=== PATIENT | female | born 1950 | race Caucasian/White ===

== ENCOUNTER → 2016-10-09 | Outpatient (CLI) | payer MEDICAID ==
[~2016-10-09] MED LIST: GADOBUTROL 10 ML VIAL IVP ONE
== END ==
LOC: FIMAGING 08:02
PROVIDERS: ATTEND Internal Medicine Hematology & Oncology
DX: R51 Headache (principal); R63.4 Abnormal weight loss; G31.9 Degenerative disease of nervous system, unspecified
CPT/HCPCS: A9585

== ENCOUNTER → 2016-12-10 | Outpatient (CLI) | payer MEDICAID | LOC: FIMAGING 14:08 | PROVIDERS: ATTEND Nurse Practitioner Women's Health | DX: Z30.431 Encounter for routine checking of intrauterine contraceptive device (principal) ==

== ENCOUNTER 2017-02-16 06:49 | Observation (INO) | payer MEDICAID ==
--- NOTE | 2017-02-15 18:24 | GHP ---
[f rep st] PREOP HISTORY AND PHYSICAL DATE OF ADMISSION: 02/16/2017 DATE OF PLANNED PROCEDURE: 02/16/2017 PLANNED PROCEDURE: Total laparoscopic hysterectomy with bilateral salpingo-oophorectomy. General S urgeon will enter the patient's abdominal cavity due to history of previous extensive abdominal surg adriano. HISTORY OF PRESENT ILLNESS: The patient is a 66-year-old 1, para 1-0-0-2 who was diagnosed with breast cancer in 2010. She has tried Femara and could not tolerate the side effects, so she reeves s been using tamoxifen for the last 5 years. The patient underwent an abdominal CT scan for pelvic pain and there was an incidental finding of a left adnexal mass. On the followup ultrasound the lef t ovarian cyst measured 2.4 x 3.2 x 2.5 cm. The endometrium was noted to be 13 mm. A Jane IUD was placed by a provider not in our practice to control possible endometrial hyperplasia. Repeat ultra sound was performed in 03/2016 after the IUD strings were not able to be visualized on exam. The le ft ovarian cyst persisted. The endometrial stripe appeared to be 5 mm and they were not able to vis ualize the IUD. The patient presented to our office on 12/09 for an IUD check, after her previous vanda kruger's office closed. The IUD strings were not visualized. At that visit a KUB was performed an d the impression was that the IUD was in the right central pelvis. We reviewed findings with the imelda urrutia. We scheduled a repeat ultrasound which showed uterus measuring 9.18 x 5.72 x 7.45 cm with a possible septum in the fundal portion of the uterus. The endometrium measured 5 mm on the left and 6 mm on the right. The right ovary was within normal limits. The left ovary has a persistent ovari an cyst which is slightly complex. There is no free fluid noted. The IUD possibly is in the cervic al canal versus the posterior cul-de-sac. We had a long discussion with the patient about managemen t options and the need to sample the lining of the uterus as well as identify the location of the IU D and remove the IUD. We discussed hysteroscopy with morcellation of endometrial tissue and removal of the IUD if the IUD is actually within the uterus versus hysteroscopy morcellation of endometrial tissue and a laparoscopy to remove the IUD. The patient is concerned about the potential for the p ersistent use of tamoxifen and resultant endometrial hyperplasia risk. The patient would like to reeves ve definitive therapy with a total laparoscopic hysterectomy with bilateral salpingo-oophorectomy an d removal of the IUD. The patient has been counseled on all management options, risks and benefits, and patient is electing to proceed with that. She has signed the Medicaid consent for sterilizatio n prior to 1 month before the surgery. The patient does have a history of previous extensive abdomi nal surgery, so I had her have a preoperative consultation with a general surgeon, Dr. Becker, who wi ll either open or place the initial trocar ports, and then we will proceed from there. MEDICAL HISTORY: Significant for history of breast cancer, history of hyperparathyroidism, osteopen ia. MEDICATIONS: Omeprazole, tamoxifen, clobetasol ointment p.r.n., Xanax p.r.n., OxyContin p.r.n., Lat anoprost drops daily, multivitamins, calcium supplements. SURGICAL HISTORY: Emergency in 1989 for twins, right elbow repair 1993, tonsillectomy 195 4, double mastectomy 2010, port placement 2011, right parathyroidectomy in 2012, Kiran-en-Y gastric b ypass in 2014, perforated ulcer secondary to Kiran-en-Y which was repaired laparoscopically in 2014. ALLERGIES: No known drug allergies. SOCIAL HISTORY: The patient does not work as she is on disability. She denies tobacco or drug use. She does drink 10 beers a week. She has 2 caffeinated beverages a week. FAMILY MEDICAL HISTORY: Noncontributory. PHYSICS TECHNICAL OFFICER HISTORY: The patient does not remember when she 1st had her period. She is post menopausal. S he has never been on hormone replacement. She had 1 history of an abnormal Pap smear 30 years ago b ut repeat Paps have been negative. She denies any history of any sexually transmitted diseases. Mango brown is a 1, para 1-0-0-2. She had an emergency for twins. REVIEW OF SYSTEMS: Negative with the above-mentioned pertinent positives. PHYSICAL EXAM: VITAL SIGNS: Stable. Her blood pressure is 106/62. Her weight is 176.8. GENERAL APPEARANCE: Alert and oriented x3. PSYCH: She has appropriate affect. Her heart rate is regular, regular. LUNGS: Clear to auscultation bilaterally. NECK: Her neck is mobile and supple. ABDOME N: Soft, nondistended, nontender. She does have several scars from surgeries. EXTREMITIES: Revea l no calf tenderness or edema. PELVIC: Reveals a mobile, mid position uterus with no adnexal buddy s. PELVIC: Ultrasound was described above. ASSESSMENT AND PLAN: A 66-year-old, 1, para 1-0-0-2 with history of breast cancer on tamoxi fen, history of thickened endometrium and displaced intrauterine device. She is electing to proceed with a total laparoscopic hysterectomy with bilateral salpingo-oophorectomy. We will have a rakesh l surgeon initially place the initial port due to patient's previous extensive abdominal surgery and will proceed from there. /[id number]/MODL
[2017-02-16] MEDS ORDERED: ceFAZolin 2 GM/DEXTROSE 100 ML IV ONE (07:14)
[2017-02-16] MEDS ORDERED: LR 1,000 ML IV ONE (07:15)
[2017-02-16 08:00] LABS: % IMMATURE GRANULYOCYTES 0.2 % (0.0-1.1); ABSOLUTE IMMATURE GRANULOCYTES 0.01 10^3/uL (0.00-0.10); ADD DIFF? NO; ADD MORPH? NO; ADD SCAN? NO; ATYPICAL LYMPHOCYTE FLAG 10 (0-99); FRAGMENT RBC FLAG 0 (0-99); HEMATOCRIT 40.1 % (38.0-47.0); HEMOGLOBIN 13.2 g/dL (12.6-16.3); LEFT SHIFT FLG 0 (0-99); LIPEMIA HEMOLYSIS FLAG 80 (0-99); MEAN CELL HEMOGLOBIN 30.3 pg (27.9-34.1); MEAN CELL HEMOGLOBIN CONCENTR. 32.9 g/dL (32.4-36.7); MEAN CELL VOLUME 92.2 fL (81.5-99.8); MEAN PLATELET VOLUME 10.9 fL (8.7-11.7); PLATELET CLUMPS FLAG 0 (0-99); PLATELET COUNT 120 10^3/uL (150-400); RED BLOOD CELL COUNT 4.35 10^6/uL (4.18-5.33); RED CELL DISTRIBUTION WIDTH 13.3 % (11.5-15.2)
[2017-02-16] MEDS ORDERED: BUPIVACAINE 0.5% 30 ML SDV ONE (08:15)
[2017-02-16] MEDS ORDERED: MIDAZOLAM 2 MG/2 ML VIAL IVP ONE (08:43)
--- NOTE | 2017-02-16 08:43 | PDANEPAE ---
ANE History of Present Illness Abdominal pain ANE Past Medical History - Cardiovascular History Hx Hypertension: No Hx Arrhythmias: No Hx Chest Pain: No Hx Coronary Artery / Peripheral Vascular Disease: No Hx CHF / Valvular Disease: No Hx Palpitations: No - Pulmonary History Hx COPD: No Hx Asthma/Reactive Airway Disease: No Hx Recent Upper Respiratory Infection: No Hx Oxygen in Use at Home: Yes O2 in Use at Home (L/minute): 2L NC at night. Hx Sleep Apnea: No Sleep Apnea Screening Result - Last Documented: Negative Pulmonary History Comment: O2 required for oxygen desaturation at night. 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 Glaucoma- controlled w/eye drops. - Chronic Pain History Chronic Pain: No - Surgical History Prior Surgeries: "sx to repair ulcer" 2015. power port placed. bilat mastectomy . gastric bypass. parotid mass excision. R elbow repair. C Section. Tonsillectomy age 4 ANE Review of Systems - Exercise capacity METS (RN): 4 METS ANE Patient History - Allergies Allergies/Adverse Reactions: ketorolac [From Toradol] Allergy (Verified 02/15/17 17:48) Other-Enter Comments NSAIDS (Non-Steroidal Anti-Inflamma Allergy (Verified 02/15/17 17:48) Other-Enter Comments - Home Medications Home Medications: Calcium Supplement 01/10/15 [Last Taken 2 Days Ago] Multivitamin (OTC) 01/10/15 [Last Taken 2 Days Ago] Omeprazole [Prilosec] 01/10/15 [Last Taken 02/16/17] Tamoxifen Citrate 01/10/15 [Last Taken 02/16/17] Zolpidem Tartrate [Ambien Cr] 01/10/15 [Last Taken 3 Days Ago] BENADRYL 02/15/17 [Last Taken 2 Days Ago] Colace 02/15/17 [Last Taken 2 Days Ago] Latanoprost 02/15/17 [Last Taken 2 Days Ago] VITAMIN E 02/15/17 [Last Taken 2 Days Ago] ZYRTEC 02/15/17 [Last Taken 2 Days Ago] - NPO status NPO Since - Liquids (Date): 02/15/17 NPO Since - Liquids (Time): 06:00 NPO Since - Solids (Date): 02/15/17 NPO Since - Solids (Time): 18:00 - Smoking Hx Smoking Status: Never smoked ANE Labs/Vital Signs - Labs Result Diagrams: 02/16/17 07:45 - Vital Signs Blood Pressure: 159/85 Heart Rate: 61 Respiratory Rate: 16 O2 Sat (%): 97 Height: 170.18 cm Weight: 76.204 kg ANE Physical Exam - Airway Neck exam: FROM Mallampati Score: Class 1 Mouth exam: poor dentition - Pulmonary Pulmonary: no respiratory distress - Cardiovascular Cardiovascular: regular rate and rhythym - ASA Status ASA Status: II ANE Anesthesia Plan Anesthesia Plan: general endotracheal anesthesia
[2017-02-16] MEDS ORDERED: PROPOFOL 200 MG/20 ML VIAL ONE (08:46)
[2017-02-16] MEDS ORDERED: LIDOCAINE 2% 100 MG/5 ML SYR ONE (08:46)
[2017-02-16] MEDS ORDERED: ROCURONIUM 50 MG/5 ML VIAL ONE (08:46)
[2017-02-16] MEDS ORDERED: DEXAMETHASONE 4 MG/ML VIAL ONE (08:46)
[2017-02-16] MEDS ORDERED: ONDANSETRON 4 MG/2 ML VIAL ONE (08:46)
[2017-02-16] MEDS ORDERED: fentaNYL 100 MCG/2 ML INJ ONE ×5 (08:46→12:41)
[2017-02-16] MEDS ORDERED: HYDROmorphONE/DILAUDID 2 MG/ML INJ ONE (08:46)
--- NOTE | 2017-02-16 08:59 | PDHPUP ---
History & Physical Update H&P update statement: This history and physical update is based on an assessment of the patient which was completed after admission or registration (within 24 hours), but prior to the surgery/procedure. H&P update: H&P reviewed & patient examined, no change in patient's condition since H&P completed
[2017-02-16] MEDS ORDERED: ONDANSETRON 4 MG/2 ML VIAL IVP PRN ×2 (10:44→13:31)
[2017-02-16] MEDS ORDERED: PROMETHAZINE HCL 25 MG/ML INJ IVP PRN (10:44)
[2017-02-16] MEDS ORDERED: NALOXONE HCL 0.4 MG/ML INJ IVP PRN ×2 (10:44→13:37)
[2017-02-16] MEDS ORDERED: METHYLENE BLUE 0.5% 50 MG/10 ML AMP ONE (11:02)
[2017-02-16] MEDS: fentaNYL 100 MCG/2 ML INJ IVP PRN ×2 (12:42→13:13)
--- NOTE | 2017-02-16 12:44 | POSTOPPROG ---
Post Op Note Date of Operation: 02/16/17 Surgeon: Magno Phan Anesthesiologist: Sylvia Anesthesia: GET(General Endotracheal) Pre-op Diagnosis: Uterine FB, Need for ongoing BC Tx Post-op Diagnosis: same Procedure: Exploratory laparoscopy, adhesiolysis Findings: minimal adhesions Inf/Abcess present in the surg proc area at time of surgery?: No EBL: Minimal
--- NOTE | 2017-02-16 12:45 | POSTANESTH ---
Post Anesthetic Evaluation Cardiovascular Status: Normal, Stable Respiratory Status: Normal, Stable Level of Consciousness/Mental Status: Can Participate in Eval Pain Control: Adequate, Prn Tx Ordered Nausea/Vomiting Control: Adequate, Prn Tx Ordered Complications Possibly Related to Anesthesia: None Noted
[2017-02-16] MEDS ORDERED: BISACODYL 10 MG SUPP PR PRN (13:31)
[2017-02-16] MEDS ORDERED: MAGNESIUM HYDROXIDE 30 ML UDCUP PO PRN (13:31)
[2017-02-16] MEDS ORDERED: LACTULOSE 20 GM/30 ML UDCUP PO PRN (13:31)
[2017-02-16] MEDS ORDERED: POLYETHYLENE GLYCOL 3350 17 GM PKT PO PRN (13:31)
[2017-02-16] MEDS ORDERED: HYDROmorphONE/DILAUDID 1 MG/ML SYR ONE (13:37)
[2017-02-16] MEDS ORDERED: HYDROmorphONE/DILAUDID 6 MG/30 ML PCA IV PRN (13:37)
[2017-02-16] MEDS: HYDROmorphONE/DILAUDID 1 MG/ML SYR IVP PRN ×2 (13:38→14:07)
--- NOTE | 2017-02-16 13:53 | GOP ---
[f rep st] OPERATIVE REPORT DATE OF OPERATION: 02/16/2017 SURGEON: Magno Phan MD PSYCHIATRIC AIDE: None. ANESTHESIA: General endotracheal. ANESTHESIOLOGIST: Dr. Ward. PREOPERATIVE DIAGNOSIS: Uterine foreign body, need for ongoing breast cancer treatment. POSTOPERATIVE DIAGNOSIS: Uterine foreign body, need for ongoing breast cancer treatment. PROCEDURE PERFORMED: 1. Exploratory laparoscopy. 2. Adhesiolysis. FINDINGS: I entered the abdomen via infraumbilical cutdown. Minimal amount of intraabdominal adhes ions. SPECIMENS: None. ESTIMATED BLOOD LOSS: 2 cc. DESCRIPTION OF PROCEDURE: The patient was greeted in the preoperative suite. Again, this was a rossy nt procedure where I would begin and assess and take down any adhesions appropriately for Dr. Marjorie feng complete the hysterectomy and bilateral oophorectomy. After discussing the procedure, the consent was signed. The patient was then brought back to the operative suite, placed on the OR table in cuevas pine position. After all anesthesia machines, including SCDs, were on and functioning, a [facility] time-out was performed. General endotracheal anesthesia was then induced without in cident. The patient was then prepped and placed into low lithotomy position with all pressure point s appropriately padded. Her abdomen was prepped and draped in typical sterile fashion. I commenced the procedure by making a vertical infraumbilical incision and carrying it down, where the fascia w as identified. I grasped the umbilical stalk with a penetrating towel clamp and elevated it. I ent ered the abdomen sharply through the midline fascia, through which digital inspection showed no adhe sions at this site. I then placed an 0 Vicryl stitch in a [id number] fashion, through which I placed Nagi trocar. We then achieved insufflation with CO2 to 15 mmHg, which was well tolerated b y the patient. I then placed a 5 mm laparoscope into the patient's abdomen and identified minimal t o no adhesions within the patient's belly. She did have a small amount of adhesions to her right co amber, which were successfully taken down with the LigaSure device. After this was done, I assisted p lacing 2 additional 5 mm trocars, 1 in the right lower, 1 in the left lower quadrant, both under dir ect visualization. After placing trocars I inspected the abdominal contents. The liver appeared no rmal. The patient's bypass in her left upper quadrant appeared normal with minimal to no adhesions and nothing suspicious appearing. I inspected her colon and visible small bowel and found nothing s uspicious or alarming. I then handed the procedure over to Dr. Amador to complete her portion of the procedure. At that time, counts reported as correct and the patient was stable. Please see her dic tation for the remainder of the procedure. DRAINS: None. /[id number]/MODL
[2017-02-16] MEDS ORDERED: LR 1,000 ML IV SCH (14:00)
[2017-02-16] MEDS: OXYCODONE/APAP 5/325 TAB PO PRN ×2 (15:13→19:44)
[2017-02-16 18:37] VITALS: RESP 16
[2017-02-16] MEDS: diphenhydrAMINE 25 MG CAP PO PRN (19:45)
[2017-02-16] MEDS: DOCUSATE SODIUM 100 MG CAP PO SCH (21:10)
--- NOTE | 2017-02-16 21:14 | GOP ---
[f rep st] OPERATIVE REPORT DATE OF OPERATION: 02/16/2017 SURGEON: Yadi Amador DO AUTO DESIGN DETAILER: Lili Adrian DO General Surgery placed trocars by Magno Phan MD. ANESTHESIA: General endotracheal tube. ANESTHESIOLOGIST: Adilene Ward MD PREOPERATIVE DIAGNOSIS: 1. Thickened endometrium in a postmenopausal woman. 2. Misplaced IUD. POSTOPERATIVE DIAGNOSIS: 1. Thickened endometrium in a postmenopausal woman. 2. Misplaced IUD. 3. Left ovarian cyst. PROCEDURE PERFORMED: Total laparoscopic hysterectomy with bilateral salpingo-oophorectomy and cysto scopy. FINDINGS: SPECIMENS: Bilateral ovaries, uterus, and tubes. ESTIMATED BLOOD LOSS: 50 cc. INDICATIONS: Patient is a 66-year-old 1, para 1-0-0-2, who was diagnosed with breast cancer in 2010. She had tried Femara but could not tolerate it because of side effects, so she has been u sing tamoxifen for the last 5 years. Patient underwent an abdominal CT scan for pelvic pain and the re was an incidental finding of a left adnexal mass. She had a simple-appearing left ovarian cyst. Her endometrium was noted to be 13 mm. Her previous provider placed a Jane IUD to control for pos sible endometrial hyperplasia. Repeat ultrasound was performed after IUD strings were not able to be visualized on exam. The endometrial stripe was thinner and they were not clear that the IUD was ei ther within the uterus or in the abdomen. She had a flat plate of the abdomen, which showed it agai n either within the uterus or in the abdomen. Management options were discussed extensively with th e patient of hysteroscopy with morcellation of endometrial tissue and removal of IUD if it is in the uterus and possible laparoscopy if it is not any uterus versus total laparoscopic hysterectomy with bilateral salpingectomy because of the history of the thickened endometrium and patient's anxiety o ann further cancer development. Risks and benefits have been discussed extensively with both and imelda urrutia elected to proceed with a total laparoscopic hysterectomy. The patient has been properly cons ented. DESCRIPTION OF PROCEDURE: Patient was taken to the operating room with intravenous fluids in place. She was then placed on the operating table in dorsal supine position, where general anesthesia was obtained. She was then re-positioned into the dorsal lithotomy position with the Yellofin stirrups and prepped and draped in the normal sterile fashion. General Surgery placed the initial trocar wi th Nagi direct open technique because of the patient's history of previous extensive abdominal sonia roberto. No adhesions were noted. After the trocar was placed, the abdomen was then insufflated with C O2 gas and again the area of the abdomen and pelvis were explored and overall were unremarkable. Tw o additional ports were placed. A 5 mm trocar was then placed in the patient's right lower quadrant and a 10 mm trocar was placed in the patient's left lower quadrant. This was done under direct vis ualization. I did a pelvic exam at that time and actually was able to palpate the IUD strings through the cervix . A speculum was placed in the patient's vagina. The IUD strings were grasped and the IUD was aditi jose manuel without difficulty. A single-tooth tenaculum was used to grasp the anterior lip of the cervix. The cervix was then carefully dilated to allow for the introduction of a PATRICE uterine manipulator. The small cuff was then used and the uterus was sounded to 8 cm. There PATRICE was assembled and inse rted without difficulty, and I was able to manipulate the uterus. The uterus was then noted to be f reely mobile within the abdomen. The left round ligament was then clamped, cauterized, and transected. The left fallopian tube was t hen clamped, cauterized, and transected. The anterior and posterior leaflet of the broad ligament w as clamped, cauterized, and transected. The uterine arteries were then skeletonized, clamped, caute rized, and transected, and the bladder flap was created anteriorly. The cuff of the colpotomy ring was easily visualized and the bladder was dissected off remotely from that. Attention was then turned to the patient's right side, and the round ligament, fallopian tube, broad ligament, and the uterine arteries were also clamped, cauterized, and transected, and then the blad yamileth flap was created anteriorly. Hemostasis was assured. The colpotomy was performed with the hook from the LigaSure without difficulty and the uterus was then withdrawn through the vagina. A spong e on a stick in a glove was then inserted into the vagina and the pneumoperitoneum was then maintain ed. The left ovarian cyst was noted. The left ovary and tube were then removed close to the fallop ronny tube and withdrawn through the 10 mm trocar. The right ovary and tube were then identified and removed. A salpingo-oophorectomy was performed on the right side and the specimen was withdrawn thr ough the 10 mm trocar. The pedicles were found to be hemostatic. The vaginal cuff was noted to be hemostatic. 0 Vicryl V-Loc suture was then used in a running fashion to close the vaginal cuff due to needle det achment from the apparatus. Three sutures were needed to be used and the cuff was closed in a runni ng fashion. The pelvis was irrigated and found to be hemostatic. Prince powder was applied to the vaginal cuff in 1 small area bleeding out of concern of not going too laterally for risk of damaging the ureter. Hemostasis was assured after the Prince was applied. The upper abdomen was explored a nd was unremarkable. The area underneath the trocar insertion sites were explored and found to be u nremarkable. The 10 mm trocar was then withdrawn and the fascial closure device was inserted. An 0 Vicryl suture was used to close the fascia. The 10 mm trocar in the umbilicus that was placed by G eneral Surgery under direct dissection had stay sutures in place. The trocar was withdrawn and the stay sutures were tied closing the fascial defect. The CO2 gas was expressed from the patient's abd omen through the through the 5 mm incision and 4-0 Monocryl was used to close the skin. Hemostasis was assured. The patient had been given methylene blue intraoperatively. A cystoscope was then inserted and flow was noted to be clearly jetting through from bilateral ureteral orifices into the bladder. The Fol ey catheter was then replaced and the bladder was drained. The patient was then returned to the oleksandr sania supine position, where she was easily awoken from anesthesia. Sponge, lap, and needle count wer e correct x2. Patient was transported to recovery room in stable condition. /[id number]/MODL
[2017-02-16] MEDS: SENNOSIDES/DOCUSATE SODIUM TAB PO SCH (23:30)
[2017-02-17] MEDS: OXYCODONE/APAP 5/325 TAB PO PRN ×3 (00:07→08:10)
[2017-02-17] MEDS ORDERED: LATANOPROST 0.005% 2.5 ML OPHT DROPS EACHEYE SCH (01:45)
[2017-02-17] MEDS: diphenhydrAMINE 25 MG CAP PO PRN ×2 (04:12→10:10)
[2017-02-17 05:08] VITALS: BP 114/72; PULSE 72; TEMP 98.6
[2017-02-17 05:20] VITALS: O2SAT 96
[2017-02-17 06:05] LABS: HEMATOCRIT 41.1 % (38.0-47.0); HEMOGLOBIN 13.3 g/dL (12.6-16.3)
[2017-02-17] MEDS: DOCUSATE SODIUM 100 MG CAP PO SCH (08:10)
--- NOTE | 2017-02-17 08:38 | SOAPPROG ---
SOAP Progress Note Assessment/Plan: Assessment: pod# 1 s/p TLH BSO for thickened endometrium and misplaced iud uncomplicated post operative course ready to go home Plan: routine discharge instructions follow up in 2 and 6 weeks 02/17/17 08:35 Subjective: patient is doing great! pain is well controlled. had an episode of vaginal bleeding when she stood for the first time. was examined by dr jose - justin villegas since then. tolerating diet. ambulating. voiding without difficulty. ready to go home,. Objective: Vital Signs Temp Pulse Resp BP Pulse Ox 37.0 C 72 16 114/72 96 02/17/17 04:00 02/17/17 04:00 02/17/17 04:00 02/17/17 04:00 02/17/17 05:18 Laboratory Results 02/17/17 06:00 02/16/17 02/17/17 02/18/17 05:59 05:59 05:59 Intake Total 4040 Output Total 1940 Balance 2100 - Pending Discharge Pending Discharge Within 24 Hours: Yes Pending Discharge Date: 02/19/17 Pending Discharge Time: 11:00 Physical Exam - Physical Exam General Appearance: WD/WN, alert, no apparent distress Neck: non-tender, full range of motion, supple Respiratory: chest non-tender, lungs clear, normal breath sounds Cardiac/Chest: normal peripheral pulses, regular rate, rhythm Abdomen: normal bowel sounds, non-tender, soft Skin: normal color, warm/dry, other (incisions covered) Extremities: normal range of motion, non-tender, normal inspection, normal capillary refill Neuro/Psych: no motor/sensory deficits, alert, normal mood/affect, oriented x 3 ICD10 Worksheet Patient Problems: Problems Problem Status Onset Thickened endometrium Acute
[2017-02-17] MEDS: SENNOSIDES/DOCUSATE SODIUM TAB PO SCH (10:16)
== END 2017-02-17 11:45 | disposition home or self-care (01) ==
LOC: FSGY 06:49 → F3E 13:42 → FOB 14:47
PROVIDERS: ADMIT Obstetrics & Gynecology; ATTEND Obstetrics & Gynecology
DX: R93.8 Abnormal findings on diagnostic imaging of other specified body structures (principal); T83.32XA Displacement of intrauterine contraceptive device, initial encounter; N83.202 Unspecified ovarian cyst, left side; K66.0 Peritoneal adhesions (postprocedural) (postinfection); E21.3 Hyperparathyroidism, unspecified; M85.80 Other specified disorders of bone density and structure, unspecified site; Z87.891 Personal history of nicotine dependence; Z85.3 Personal history of malignant neoplasm of breast
CPT/HCPCS: 44180; 58301; 58571; G0378; J0690; J1100; J1170; J1200; J2001; J2405; J2704; J3010; Q9968

== ENCOUNTER → 2018-10-18 | Outpatient (CLI) | payer OTHER | LOC: FIMAGING 13:40 | PROVIDERS: ATTEND Internal Medicine Hematology & Oncology | DX: Z13.820 Encounter for screening for osteoporosis (principal); M81.0 Age-related osteoporosis without current pathological fracture; Z78.0 Asymptomatic menopausal state; Z85.3 Personal history of malignant neoplasm of breast; Z79.899 Other long term (current) drug therapy ==